=== PATIENT | male | born 1960 | race Caucasian/White ===

== ENCOUNTER 2018-07-09 05:47 | Emergency (ER) | payer BC ==
[~2018-07-09] VITALS: Ht 180.3 cm; Wt 111.1 kg
[2018-07-09 05:52] VITALS: BP_SYST 135
[2018-07-09 06:11] LABS: CLARITY/URINE CLEAR (CLEAR); COLOR,URINE YELLOW (YELLOW)
[2018-07-09 06:12] LABS: BILIRUBIN,URINE 1+ (NEGATIVE); BLOOD, URINE TRACE (NEGATIVE); GLUCOSE,URINE NEGATIVE (NEGATIVE); KETONES,URINE TRACE (NEGATIVE); LEUKOCYTE ESTERASE ,URINE NEGATIVE (NEGATIVE); NITRITE, URINE NEGATIVE (NEGATIVE); PROTEIN URINE 1+ (NEGATIVE)
[2018-07-09 06:16] LABS: BACTERIA,URINE RARE /HPF (None Seen); WBC,URINE 0-3 /HPF (0-3)
[2018-07-09] MEDS ORDERED: MORPHINE 4 MG/ML INJ. SYRINGE IVP ONE (07:00)
[2018-07-09] MEDS ORDERED: ONDANSETRON HCL 4 MG/2 ML VIAL IVP ONE (07:00)
[2018-07-09 07:02] LABS: BASOPHILS # (AUTO) 0.1 K/uL (0.0-0.2); BASOPHILS % (AUTO) 0.6 % (0.0-2.0); EOSINOPHILS % (AUTO) 0.3 % (0.0-4.0); HEMATOCRIT 50.9 % (36-54); LYMPHOCYTES # (AUTO) 1.1 K/uL (1.0-5.5); LYMPHOCYTES % (AUTO) 10.3 % (20.5-51.5); MEAN CORPUSCULAR HEMOGLOBIN 31 pg (27-31); MEAN CORPUSCULAR HGB CONC 33 % (32-36); MEAN CORPUSCULAR VOLUME 93 fL (79.0-98.0); MONOCYTES # (AUTO) 0.6 K/uL (0.0-1.0); MONOCYTES % (AUTO) 5.2 % (1.7-9.3); NEUTROPHILS # (AUTO) 8.9 K/uL (1.8-7.7); NEUTROPHILS % (AUTO) 83.6 % (40.0-70.0); RED BLOOD CELL COUNT(AUTO) 5.47 MIL/uL (4.2-6.2); RED CELL DISTRIBUTION WIDTH 12.7 % (9.0-15.0); WHITE BLOOD COUNT (AUTO) 10.7 K/uL (4.8-10.8)
[2018-07-09 07:15] LABS: POTASSIUM 4.4 mmol/L (3.5-5.1)
[2018-07-09 07:16] LABS: CREATININE 1.18 mg/dL (0.55-1.30)
[2018-07-09 07:19] LABS: ALBUMIN 4.4 g/dL (3.4-4.8); TOTAL BILIRUBIN 0.4 mg/dL (0.0-1.0)
[2018-07-09 07:47] LABS: PLATELET COUNT (AUTO) 186 K/uL (130-430)
[2018-07-09 11:18] VITALS: BP_SYST 105
== END 2018-07-09 11:18 | disposition home or self-care (01) ==
LOC: SED 05:47
DX: N20.0 Calculus of kidney (principal); E78.5 Hyperlipidemia, unspecified; I10 Essential (primary) hypertension
CPT/HCPCS: 36415; 74176; 80053; 81000; 83690; 85025; 96374; 96375; 99284; J2270; J2405

== ENCOUNTER 2022-10-17 04:51 | Emergency (ER) | payer BC, OTHER ==
[~2022-10-17] VITALS: Ht 180.3 cm; Wt 106.6 kg
[2022-10-17 05:01] VITALS: BP_SYST 123
--- NOTE | 2022-10-17 05:05 | NUR ---
Patient to ER bed 04 to gown for evaluation. Side rails up. Report given to DEMOND CASTANEDA.
--- NOTE | 2022-10-17 05:06 | NUR ---
Report received from DEMOND Coughlin; assuming patient care at this time.
--- NOTE | 2022-10-17 05:08 | NUR ---
Patient presents to ED from home with c/o right sided lower back pain x5 days. Patient reports pain 8/10 at this time. Patient states "I was doing yard work in my parent's yard and everything was okay, but then half an hour later my back really started hurting. I went to urgent care on Saturday and they gave me muscle relaxers and Ibuprofen but the pain hasnt gotten better. So that's why I'm here so that I can be seen and hopefully get my pain resolved." Patient A/Ox4, VSS, ambulatory, resp even and unlabored, skin warm, dry, intact, color wnl for ethnicity. Nad noted at this time. ER MD Vazquez made aware.
--- NOTE | 2022-10-17 05:25 | NUR ---
Lab at bedside.
[2022-10-17 05:41] LABS: BASOPHILS % (AUTO) 0.5 % (0.0-2.0); EOSINOPHILS # (AUTO) 0.3 K/uL (0.0-0.4); EOSINOPHILS % (AUTO) 4.4 % (0.0-4.0); HEMATOCRIT 45.1 % (36-54); HEMOGLOBIN 15.1 g/dL (14.0-18.0); LYMPHOCYTES # (AUTO) 1.8 K/uL (1.0-5.5); LYMPHOCYTES % (AUTO) 27.6 % (20.5-51.5); MEAN CORPUSCULAR HEMOGLOBIN 31 pg (27-31); MEAN CORPUSCULAR HGB CONC 34 % (32-36); MEAN CORPUSCULAR VOLUME 93 fL (79.0-98.0); MONOCYTES # (AUTO) 0.7 K/uL (0.0-1.0); MONOCYTES % (AUTO) 10.8 % (1.7-9.3); NEUTROPHILS # (AUTO) 3.6 K/uL (1.8-7.7); NEUTROPHILS % (AUTO) 56.7 % (40.0-70.0); PLATELET COUNT (AUTO) 155 K/uL (130-430); RED BLOOD CELL COUNT(AUTO) 4.85 MIL/uL (4.2-6.2); RED CELL DISTRIBUTION WIDTH 13.4 % (9.0-15.0); WHITE BLOOD COUNT (AUTO) 6.4 K/uL (4.8-10.8)
[2022-10-17 05:53] LABS: CALCIUM 8.7 mg/dL (8.4-11.0); CREATININE 0.94 mg/dL (0.55-1.30)
[2022-10-17 05:58] LABS: ALBUMIN 3.6 g/dL (3.4-4.8); TOTAL BILIRUBIN 0.3 mg/dL (0.0-1.0)
--- NOTE | 2022-10-17 06:07 | NUR ---
JONATHAN Gay at bedside.
[2022-10-17] MEDS ORDERED: KETOROLAC TROMETHAMINE 60 MG/2 ML VIAL IM ONE (06:15)
[2022-10-17 06:18] LABS: BILIRUBIN,URINE NEGATIVE (NEGATIVE); COLOR,URINE YELLOW (YELLOW); GLUCOSE,URINE NEGATIVE (NEGATIVE); KETONES,URINE NEGATIVE (NEGATIVE); LEUKOCYTE ESTERASE ,URINE NEGATIVE (NEGATIVE); NITRITE, URINE NEGATIVE (NEGATIVE); PROTEIN URINE NEGATIVE (NEGATIVE); UROBILINOGEN,URINE 0.2 (0.2-1.0)
[2022-10-17 06:27] LABS: BLOOD, URINE TRACE (NEGATIVE); CLARITY/URINE HAZY (CLEAR)
[2022-10-17 06:32] LABS: BACTERIA,URINE None Seen /HPF (None Seen); WBC,URINE 0-3 /HPF (0-3)
--- NOTE | 2022-10-17 07:10 | NUR ---
Report given to JAKE Mckeon; who is assuming patient cares at this time.
--- NOTE | 2022-10-17 07:20 | NUR ---
Pt report given to DEMOND Morales.
[2022-10-17] MEDS ORDERED: TRAM50TA2 PO (07:25)
[2022-10-17 07:30] VITALS: BP_SYST 124
--- NOTE | 2022-10-17 07:30 | NUR ---
PT MEDICALLY CLEARED FOR DISCHARGE. D/C INSTRUCTIONS GIVEN TO PT. PT TO FOLLOW-UP WITH PCP WITHIN 1-3 DAYS AND TO RETURN TO ED FOR WORSENING S/S. PT VERBALZIED UNDERSTANDING. PT AAX04, NAD, WRISTBAND REMOVED. PT AMBULATORY WITH STEADY GAIT. PT LEFT ED WITH ALL BELONGINGS.
== END 2022-10-17 07:30 | disposition home or self-care (01) ==
LOC: SED 04:51
DX: R31.29 Other microscopic hematuria (principal); R10.9 Unspecified abdominal pain; M54.50 Low back pain, unspecified; E78.5 Hyperlipidemia, unspecified; I10 Essential (primary) hypertension; Z79.899 Other long term (current) drug therapy
CPT/HCPCS: 99285; 74176; 80053; 81000; 83690; 85025; 36415; 76376; 96372; J1885